=== PATIENT | female | born 1950 | race American Indian/Alaskan Native ===

== ENCOUNTER 2017-11-30 06:13 | Day surgery (SDC) | payer OTHER, MEDICARE ==
[2017-11-26 08:56] VITALS: BMI 29.9
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
[2017-11-30] MEDS ORDERED: Bupivacaine HCl 0.5% PF (10 ml) Inj ONE (07:41)
[2017-11-30] MEDS ORDERED: Ropivacaine 0.5% 30ML IV ONE (07:41)
[2017-11-30] MEDS ORDERED: Propofol 10 mg/ml Inj (20 ML) ONE (07:45)
[2017-11-30] MEDS ORDERED: Midazolam 2 MG/2 ML VIAL ONE (07:45)
[2017-11-30] MEDS ORDERED: Lidocaine 4% (Laryng-O-Jet) Kit MM ONE (07:51)
[2017-11-30] MEDS ORDERED: EPINEPHrine 1 mg/ml (1:1000) Inj ONE ×2 (07:55→08:08)
[2017-11-30] MEDS ORDERED: Absorbable Gelatin Sponge Size 100 ONE (07:56)
[2017-11-30] MEDS ORDERED: Lidocaine 1% Inj (20ml) ONE (07:56)
[2017-11-30] MEDS ORDERED: Thrombin Topical 5,000 Int Units Spray Kit ONE (07:56)
[2017-11-30] MEDS ORDERED: Lactated Ringer's 1,000 ML IV ONE (08:55)
[2017-11-30] MEDS ORDERED: ePHEDrine 50 mg/ml Inj ONE ×2 (09:21→10:54)
[2017-11-30] MEDS ORDERED: Vasopressin 20 Units/ml Inj ONE (09:48)
[2017-11-30] MEDS ORDERED: Calcium Chloride 1000 mg/10 ml Syringe IV ONE (09:48)
[2017-11-30] MEDS ORDERED: Sodium Chloride 0.9% 1,000 ML IV ONE (10:30)
[2017-11-30] MEDS: Bacitracin Ointment 30 GM TUBE ONE ×2 (10:43→12:15)
--- NOTE | 2017-11-30 10:52 | PCM.ANESB1 ---
Interscalene Block - Brachial Plexus Date of Procedure: 11/30/17 Anesthesiologist: Yifan Pre-Procedure Diagnosis: Right shoulder pain Post-Procedure Diagnosis: Same Procedure Performed: Interscalene Block of Brachial Plexus Right - Procedure Interscalene Block of Brachial Plexus: This procedure was explained to the patient that it is for post-operative pain management. Consent was obtained after a thorough discussion with the patient regarding the benefits and possible complications of local anesthetic block of the Brachial Plexus at the Interscalene area. The patient was brought to the Operating Room and standard monitors were applied. Time out was held with the circulating nurse to confirm the correct surgery and appropriate block. After applying Oxygen by nasal cannula and administering IV Sedation, the patient's head was gently rotated away from the ___right___operative shoulder and the anterior scalene groove was carefully palpated. The ultrasound transducer was then applied to the skin in the transverse plane and the brachial plexus was visualized lateral to the carotid artery and in between the anterior and middle scalene muscles. After identification,the anterior lateral portion of the neck was prepped with Betadine solution three times and Lidocaine 1% was injected subcutaneously for topical analgesia. At this point, a # 22 gauge Stimuplex 2 inches insulated needle was inserted into the interscalene groove and directed in a caudal and midline direction. The needle was inserted lateral to the ultrasound transducer in-plane towards the brachial plexus in a [id number] direction. Needle advancement was performed carefully under direct ultrasound visualization. Nerve stimulator was used and twitched of the affected extremity including the hand brachialis muscles, biceps and the deltoid was obtained at a current of __0.4___MA. After repeated negative aspiration,___20__cc of__.5___,____ropivacaine were injected. Under ultrasound guidance the local anesthetics were observed surrounding the roots of the brachial plexus. The needle was removed intact and sterile dressing was applied. The patient had stable vital signs, was conscious and in no apparent distress. The patient tolerated the interscalene block of the bracheal plexus well with stable vital signs and was prepared for subsequent surgery.
[2017-11-30] MEDS ORDERED: Rocuronium 10 mg/ml (5 ml) ONE (11:45)
[2017-11-30] MEDS ORDERED: Sodium Chloride 0.9% 1,000 ML IV SCH (12:35)
[2017-11-30] MEDS ORDERED: HYDROmorphone 0.5 mg/0.5 ml ISec IVP PRN (12:41)
[2017-11-30 13:23] VITALS: RESP 18
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
[2017-11-30 15:39] VITALS: O2SAT 100
[2017-11-30 17:03] VITALS: BP 128/76; PULSE 70; TEMP 97.2
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
== END 2017-11-30 17:45 | disposition home or self-care (01) ==
LOC: H.OPSURG 06:13
PROVIDERS: ATTEND Orthopaedic Surgery
DX: M75.101 Unspecified rotator cuff tear or rupture of right shoulder, not specified as traumatic (principal); S46.291A Other injury of muscle, fascia and tendon of other parts of biceps, right arm, initial encounter; M75.01 Adhesive capsulitis of right shoulder; M19.011 Primary osteoarthritis, right shoulder; M25.811 Other specified joint disorders, right shoulder; Z95.5 Presence of coronary angioplasty implant and graft; I10 Essential (primary) hypertension; E11.9 Type 2 diabetes mellitus without complications; H40.9 Unspecified glaucoma; V49.88XA Car occupant (driver) (passenger) injured in other specified transport accidents, initial encounter; Z79.4 Long term (current) use of insulin; Y92.414 Local residential or business street as the place of occurrence of the external cause; Z87.891 Personal history of nicotine dependence
CPT/HCPCS: 29822; 29824; 29826; 29827; 29828; 82948; 88305; C1713; J0171; J0690; J2001; J2250; J2704; J3010; J7030; J7040; J7120